=== PATIENT | male | born 1965 | race Caucasian/White ===

== ENCOUNTER 2017-01-24 09:47 | Emergency (ER) | payer BC ==
[~2017-01-24] VITALS: Ht 185.4 cm; Wt 141.8 kg
[~2017-01-24 09:47] MED LIST: CELECOXIB200 MG PO; ELIQUIS2.5 MG PO; ENDOCET 5-3251 EACH PO; IRON325 M1 PO; LEVAQUIN750 MG PO; TYLENOL EXTRA500 MG PO; ULTRAM50 MG PO; ZOFRAN4 MG PO
[2017-01-24 10:37] LABS: HEMATOCRIT 44.8 % (38.0-50.0); MCH 29.6 PG (29.0-34.0); MCHC 33.3 G/DL (30.0-36.0); MCV 88.9 FL (86-99); MEAN PLAT.VOLUME 10.4 uM^3 (9.0-12.4); PLATELET COUNT 280 K/uL (156-360); RBC DIS.WIDTH-CV 12.9 % (11.8-14.6); RBC DIS.WIDTH-SD 41.9 % (39-53); RED BLOOD COUNT 5.04 M/uL (4.00-5.50); WHITE BLOOD COUNT 7.5 K/uL (4.1-10.2)
[2017-01-24 10:49] LABS: CHLORIDE 103 mEq/L (99-109); POTASSIUM 4.4 mEq/L (3.7-5.4); SODIUM 139 mEq/L (136-147)
[2017-01-24 10:50] LABS: GLUCOSE 99 mg/dL (70-99)
[2017-01-24 10:52] LABS: ANION GAP 11 MEQ/L (2-14)
[2017-01-24 10:54] LABS: GFR ESTIMATE (CALCULATED) > 59 mL/min/
[2017-01-24 10:55] LABS: UREA NITROGEN (BUN) 16 mg/dL (9-23)
[2017-01-24 11:02] LABS: TROP-I INTERPRETATION NEGATIVE; TROPONIN-I < 0.01 ng/mL (0.0-0.30)
[2017-01-24 11:05] LABS: D-DIMER ELISA 1.56 mg/L FEU (< 0.57)
[2017-01-24 12:00] VITALS: BP 122/80
== END 2017-01-24 13:24 | disposition home or self-care (01) ==
LOC: EME 09:47
PROVIDERS: Emergency Medicine
DX: R07.9 Chest pain, unspecified (principal); B34.9 Viral infection, unspecified; Z86.711 Personal history of pulmonary embolism; Z87.01 Personal history of pneumonia (recurrent); Z79.01 Long term (current) use of anticoagulants; Z96.652 Presence of left artificial knee joint
CPT/HCPCS: 71020; 71275; 80048; 84484; 85027; 85379; 93005; 99281; 99285